=== PATIENT | female | born 1940 | race Caucasian/White ===

== ENCOUNTER 2017-06-20 18:39 | Emergency (ER) | payer MEDICARE, MEDICAID ==
[~2017-06-20] VITALS: Ht 160 cm; Wt 63.5 kg
--- NOTE | 2017-06-20 18:40 | NUR ---
Basilia gaitan in ED - 06/20/17 [address] Leung at bedside in room 2a for MSE.
[2017-06-20] MEDS ORDERED: ASPI81TA31 PO (19:08)
[2017-06-20] MEDS ORDERED: METO-356 PO (19:08)
[2017-06-20] MEDS ORDERED: FLEC100T2 PO (19:08)
[2017-06-20] MEDS ORDERED: TUMS PO (19:08)
[2017-06-20] MEDS ORDERED: VITAMIN D3 PO (19:08)
--- NOTE | 2017-06-20 19:10 | NUR ---
PT IS IN ROOM #1B, WAITING FOR DR MAJANO EVALUATION.
--- NOTE | 2017-06-20 19:15 | NUR ---
ASSUMED CARE OF PATIENT. NO ACUTE DISTRESS AT THIS TIME. PATIENT AWAITING ER MD EVALUATION
[2017-06-20] MEDS ORDERED: CEPHALEXIN MONOHYDRATE 500 MG CAPSULE PO ONE (19:30)
[2017-06-20] MEDS ORDERED: TDAP DIPH,PERTUSS,TET VAC/PF 0.5 ML DISP.SYRIN IM ONE ×2 (19:30→19:32)
[2017-06-20] MEDS ORDERED: CEPHALEXIN MONOHYDRATE 500 MG CAPSULE ONE (19:32)
--- NOTE | 2017-06-20 20:32 | NUR ---
Patient discharged to home in stable conditon. Written and verbal after care instructions given. Patient verbalizes understanding of instructions. Ambulated from ER with stable gait. All belongings with patient at this time.
[2017-06-20 20:34] VITALS: BP 140/78
== END 2017-06-20 20:35 | disposition home or self-care (01) ==
LOC: ER 18:43
DX: S61.011A Laceration without foreign body of right thumb without damage to nail, initial encounter (principal); I10 Essential (primary) hypertension; K21.9 Gastro-esophageal reflux disease without esophagitis; Z79.82 Long term (current) use of aspirin; Z79.899 Other long term (current) drug therapy; Z88.0 Allergy status to penicillin; W25.XXXA Contact with sharp glass, initial encounter; Y93.89 Activity, other specified; Y92.89 Other specified places as the place of occurrence of the external cause; Y99.8 Other external cause status
CPT/HCPCS: 73140; 90715; A4663